=== PATIENT | female | born 1985 | race Caucasian/White ===

== ENCOUNTER 2022-01-20 23:27 | Emergency (ER) | payer BC, SELFPAY ==
[2022-01-21 00:05] LABS: #Basophils 0.1 thou/uL (0.0-0.2); #Eosinphils 0.1 thou/uL (0.0-0.7); #Lymphocytes 2.5 thou/uL (1.20-3.40); #Monocytes 0.5 thou/uL (0.11-0.59); #Neutrophils 5.7 thou/uL (1.40-6.50); %Basophils 0.6 % (0.0-1.0); %Eosinophils 0.8 % (0.0-10.0); %Monocytes 5.5 % (0.0-10.0); Hemoglobin 14.1 g/dL (12.0-16.0); Mean Corpuscular HGB CONC 34.7 g/dL (32.0-36.0); Mean Corpuscular Hemoglobin 32.5 pg (27.0-31.0); Mean Corpuscular Volume 93.4 fL (78.0-98.0); Mean Platelet Volume 6.4 fL (7.4-10.4); Platelet Count 332 thou/uL (130-400); RBC Distribution Width 11.8 % (11.5-14.5); Red Blood Cell (RBC) Count 4.35 mill/uL (4.20-5.40); White Blood Cell (WBC) Count 8.8 thou/uL (4.8-10.8)
[2022-01-21] MEDS ORDERED: Pantoprazole 40 MG VIAL ONE (00:05)
[2022-01-21] MEDS ORDERED: Famotidine/PF 20 mg/2ml Vial ONE (00:05)
[2022-01-21 00:14] LABS: BHCG - Serum Negative (NEGATIVE); Pregs Control Background? CLEAR/WHITE (CLR/WHITE); Pregs Control Bar Appear? YES (CONTROL BAR)
[2022-01-21 00:26] LABS: ALT (SGPT) 27 U/L (8-55); AST (SGOT) 39 U/L (5-34); Alkaline Phosphatase 66 U/L (40-110); Anion Gap 15 mmol/L (10-20); BUN (Urea Nitrogen) 6 mg/dL (7.0-18.7); Bilirubin, Total 0.5 mg/dL (0.2-1.2); Calc. Creatinine Clearance 0 mL/min (70-130); Calcium 8.9 mg/dL (7.8-10.44); Carbon Dioxide 20 mmol/L (22-29); Chloride 108 mmol/L (98-107); Estimated GFR 112; Globulin 2.6 g/dL (2.4-3.5); Glucose 106 mg/dL (70-105); Protein, Total 6.6 g/dL (6.0-8.3); Sodium 140 mmol/L (136-145)
[2022-01-21 00:33] LABS: Potassium 2.9 mmol/L (3.5-5.1)
[2022-01-21] MEDS ORDERED: Potassium Chloride 20 MEQ TAB ONE (01:00)
[2022-01-21] MEDS ORDERED: Magnesium 2 GM/50 ML BAG (IN WATER) ONE (01:08)
[2022-01-21 03:15] LABS: Troponin I 0.016 ng/mL (< 0.028)
[2022-01-21] MEDS ORDERED: Iopamidol-370 76% 500 ML 1 ML ONE (16:03)
== END 2022-01-21 03:37 | disposition home or self-care (01) ==
LOC: ERS 23:27
DX: E87.6 Hypokalemia (principal); R07.9 Chest pain, unspecified; F17.290 Nicotine dependence, other tobacco product, uncomplicated
CPT/HCPCS: 36415; 71045; 71275; 74174; 80053; 83690; 84484; 84703; 85025; 85379; 93005; 96374; 96375; C9113; J3475; Q9967; S0028